=== PATIENT | female | born 1990 ===

== ENCOUNTER 2016-11-06 00:57 | Emergency (ER) | payer SELFPAY ==
[2016-11-06 01:11] VITALS: BP 133/85; PULSE 117; RESP 18; TEMP 98.5; O2SAT 100
--- NOTE | 2016-11-06 02:15 | C.PDOC ---
History Of Present Illness Pt presents to ER with c/o right sided neck pain and stiffness and left earache x today. Pt reports h/o of dry cough, sore thoat and nasal congestion 3 days prior with subjective fever. Pt reports URI sx are improving but is concerned of her neck pain. Pt denies headache, dizziness Time Seen by Provider: 11/06/16 01:16 Chief Complaint (Nursing): Flu-like Symptoms History Per: Patient History/Exam Limitations: no limitations Current Symptoms Are (Timing): Still Present Sick Contacts (Context): None Associated Symptoms: Sore Throat, Neck Pain. denies: Fever, Nasal Congestion Ear Symptoms: Left: Ear Pain Severity: Moderate Recent travel outside of the [place]: No Past Medical History Vital Signs: Last Vital Signs Temp 98.5 F 11/06/16 01:08 Pulse 117 H 11/06/16 01:08 Resp 18 11/06/16 01:08 BP 133/85 11/06/16 01:08 Pulse Ox 100 11/06/16 01:08 - Medical History PMH: No Chronic Diseases Family History: States: Unknown Family Hx - Social History Hx Alcohol Use: No Hx Substance Use: No Review Of Systems Constitutional: Positive for: Fever (subjective) ENT: Positive for: Ear Pain (Lt), Nose Congestion Cardiovascular: Negative for: Chest Pain Respiratory: Positive for: Cough (dry). Negative for: Shortness of Breath Gastrointestinal: Negative for: Vomiting Musculoskeletal: Positive for: Neck Pain (right) Skin: Positive for: Rash Neurological: Negative for: Weakness, Numbness Physical Exam - Physical Exam Appears: Well, Non-toxic, In Acute Distress (painful distress) Skin: Normal Color Head: Atraumatic Eye(s): bilateral: Normal Inspection, PERRL, EOMI Ear(s): Bilateral: Normal Nose: Normal, No Discharge Oral Mucosa: Moist Neck: Decreased ROM (right ), No Midline Cervical Tenderness, Paracervical Tenderness (right), No Step Off Deformity Chest: Symmetrical, No Tenderness Cardiovascular: Rhythm Regular Respiratory: Normal Breath Sounds, No Wheezing Extremity: Normal ROM, No Tenderness Extremity: Bilateral: Atraumatic Neurological/Psych: Oriented x3, Normal Speech, Normal Cognition, Normal Cranial Nerves, Normal Motor, Normal Sensation Gait: Steady ED Course And Treatment O2 Sat by Pulse Oximetry: 100 Pulse Ox Interpretation: Normal Progress Note: Toradol IM and valium PO ordered. Pt left the ER after meds were administered prior to reassessment, checked all areas of ER and bedside and pt was not located. Disposition - Disposition Disposition: ELOPEMENT - ER ONLY Disposition Time: 02:05 Condition: UNKNOWN Instructions: Head Injury in Children (ED) - Clinical Impression Clinical Impression: Neck muscle strain, Upper respiratory infection, Patient left before treatment completed
== END 2016-11-06 02:02 | disposition left against medical advice (07) ==
LOC: C.ER 00:57
DX: S16.1XXA Strain of muscle, fascia and tendon at neck level, initial encounter (principal); X58.XXXA Exposure to other specified factors, initial encounter; J06.9 Acute upper respiratory infection, unspecified
CPT/HCPCS: 96372; 99283; J1885

== ENCOUNTER 2017-07-18 00:14 | Emergency (ER) | payer SELFPAY ==
[2017-07-18] MEDS ORDERED: Promethazine/Cod 6.25mg-10mg/5ml Syr UD PO STA (01:08)
[2017-07-18] MEDS ORDERED: Albuterol 0.083% Inhal Sol (2.5 mg/3 mL) UD IH STA (01:08)
--- NOTE | 2017-07-18 01:12 | C.PDOC ---
History Of Present Illness 27 yo female w/o significant PMHx come in for evaluation of cold sx for past 3 days associated with fever, runny nose, dry cough. Otherwise, pt denies headache , dizziness, drooling, dysphagia, dyspnea, CP, SOB, wheezing, abd. pain, V/D, back pain, UTI sx. Ambulate to Ed for evaluation, occasional dry cough noted in ED. Time Seen by Provider: 07/18/17 00:18 Chief Complaint (Nursing): Flu-like Symptoms History Per: Patient Past Medical History Reviewed: Historical Data, Nursing Documentation, Vital Signs Vital Signs: Last Vital Signs Temp 99.3 F 07/18/17 02:49 Pulse 90 07/18/17 02:49 Resp 20 07/18/17 02:49 BP 118/77 07/18/17 02:49 Pulse Ox 98 07/18/17 02:49 - Medical History PMH: No Chronic Diseases Surgical History: No Surg Hx Family History: States: No Known Family Hx - Social History Hx Tobacco Use: No Hx Alcohol Use: No Hx Substance Use: No Review Of Systems Except As Marked, All Systems Reviewed And Found Negative. Constitutional: Positive for: Fever (subjective), Chills, Malaise Eyes: Negative for: Vision Change, Redness ENT: Positive for: Nose Discharge, Nose Congestion, Throat Pain. Negative for: Ear Pain, Ear Discharge Cardiovascular: Negative for: Chest Pain, Palpitations Respiratory: Positive for: Cough. Negative for: Shortness of Breath, Wheezing Gastrointestinal: Negative for: Nausea, Vomiting, Abdominal Pain, Diarrhea Genitourinary: Negative for: Dysuria Musculoskeletal: Negative for: Neck Pain Skin: Negative for: Rash Neurological: Negative for: Weakness, Numbness, Altered Mental Status, Headache , Dizziness Physical Exam - Physical Exam Appears: Well, Non-toxic, No Acute Distress, Other (occasional dry cough noted) Skin: Normal Color, Warm, Dry, No Rash Head: Normacephalic Eye(s): bilateral: PERRL Ear(s): Bilateral: Normal Nose: No Flaring, Discharge (scant clear B/L) Oral Mucosa: Moist, No Drooling Throat: No Erythema, No Drooling Neck: Normal ROM, Trachea Midline, Supple Cardiovascular: Rhythm Regular, No Murmur, No JVD Respiratory: No Decreased Breath Sounds, No Accessory Muscle Use, No Rales, No Rhonchi, No Stridor, No Wheezing Gastrointestinal/Abdominal: Soft, No Tenderness, No Distention, No Guarding Extremity: Normal ROM, No Deformity, No Swelling Neurological/Psych: Oriented x3, Normal Speech ED Course And Treatment O2 Sat by Pulse Oximetry: 96 Pulse Ox Interpretation: Normal - Radiology CXR: Interpreted by Me, Viewed By Me CXR Interpretation: Yes: No Acute Disease Progress Note: On re-evaluation, pt is afebrile, hemodynamicaly stable. Non- toxic. Tolerate Po well in ED. PulsEOx 96% RA. ENT: no acute findings. neck: supple, (-) meningeal sign. Lungs: CTA B/L, BS equal B/L. Abd: benign, (-) guarding, (-) rebound. Neuorlogicaly intact. CXR- normal study. Pt has clinical findings c/w bronchitis. Pt advised. ref. to f/u with PMD In 2-3 days for re-eavl. return to ED if any worsening or new changes. Disposition Counseled Patient/Family Regarding: Studies Performed, Diagnosis, Need For Followup, Rx Given - Disposition Referrals: [facility] [Outside] Disposition: HOME/ ROUTINE Disposition Time: 02:00 Condition: STABLE Additional Instructions: take medication as prescribed follow up with PMD in 2-3 days for re-evaluation. return to ED if any worsening or new changes. Prescriptions: Albuterol HFA [Ventolin HFA 90 mcg/actuation (8 g)] 1 puff IH Q6 #1 inhaler Prednisone [Deltasone] 40 mg PO DAILY #6 tablet Promethazine/Codeine [Phenergan/Codeine Oral Syrup] 10 ml PO TID #100 ml Instructions: Acute Bronchitis (ED) Forms: [employer] (Amharic) - Clinical Impression Clinical Impression: Bronchitis
[2017-07-18] MEDS ORDERED: Albuterol 0.083% Inhal Sol (2.5 mg/3 mL) UD ONE (01:27)
[2017-07-18] MEDS ORDERED: Promethazine DM 6.25 mg-15 mg/5 ml Syrup ONE (01:27)
[2017-07-18 02:50] VITALS: BP 118/77; PULSE 90; RESP 20; TEMP 99.3
[2017-07-18 03:55] VITALS: O2SAT 96
--- NOTE | 2017-07-18 09:52 | RAD ---
HISTORY: Cough COMPARISON: No prior. TECHNIQUE: Chest PA and lateral FINDINGS: LUNGS: Minor bibasilar atelectasis PLEURA: No significant pleural effusion identified. No pneumothorax apparent. CARDIOVASCULAR: Normal. OSSEOUS STRUCTURES: No significant abnormalities. VISUALIZED UPPER ABDOMEN: Normal. OTHER FINDINGS: None. IMPRESSION: Minor bibasilar atelectasis.
== END 2017-07-18 03:02 | disposition home or self-care (01) ==
LOC: C.ER 00:14
DX: J40 Bronchitis, not specified as acute or chronic (principal)